=== PATIENT | female | born 1950 ===

== ENCOUNTER 2021-01-19 08:00 | Outpatient (CLI) | payer OTHER ==
[~2021-01-19 08:00] MED LIST: AVAPRO150 MG PO; CARDIZEM60 MG PO; INTEGRA PLUS CAPSULE PO; METFORMIN HCL500 M2 PO; OXYC1TAB9 PO; SYNTHROID75 MCG PO; TENORMIN50 M1 PO; XARELTO 10MG PO; ZOCOR40 MG PO
== END 2021-01-19 08:30 | disposition home or self-care (01) ==
LOC: PPH VACUNA 08:00
PROVIDERS: ATTEND Emergency Medicine Pediatric Emergency Medicine
DX: Z23 Encounter for immunization (principal)